=== PATIENT | male | born 1945 | race Caucasian/White ===

== ENCOUNTER 2016-08-03 21:34 | Inpatient (IN) | payer MEDICARE, OTHER ==
[~2016-08-03] VITALS: Ht 177.8 cm; Wt 95.5 kg
[~2016-08-03 21:34] MED LIST: ADV250INH IH; ASPI-628 PO; COMBIVENTA INH; HYDR25TA4 PO
--- NOTE | 2016-08-03 21:38 | ED.REPORT ---
HPI-Dyspnea / Wheezing Date of Service Aug 03, 2016 ED Provider: MD Heather This is a 70 year old male with a history of COPD, HTN, and osteoarthritis brought to the emergency department by EMS complaining of dyspnea that worsened just prior to arrival. Reports inability to catch his breath. Associated symptoms include fever, chills, and non productive cough that began 2 days ago. Denies nausea, vomiting, abdominal pain, chest pain, constipation, or diarrhea. Nursing Notes Stated Complaint: RESPIRATORY DISTRESS Nursing Notes Reviewed: Yes Allergies: Coded Allergies: No Known Allergies (Unverified , 04/04/14) Scheduled Albuterol/Ipratropium (Combivent Inhaler) 14.7 Gm Aero 14.7 GM INH QID Fluticasone/Salmeterol (Advair 250-50 Diskus) 60 Puff/Inh Disk 1 PUFF IH BID Potassium Chloride ER (Klor-Con 10) 10 Meq Tablet 10 MEQ PO BID Prednisone (PredniSONE) 5 Mg Tab 5 MG PO DAILY Scheduled PRN Furosemide (Furosemide) 80 Mg Tab 80 MG PO BID PRN PRN For Shortness of Breath General Time Seen by MD: 21:37 Chief Complaint Shortness of breath Hx Obtained From: Patient Arrived By: Ambulance Sudden in Onset?: Yes Onset Occurred: 2 days ago Symptom Duration: Since onset Severity: Current: No pain currently Pertinent Negative: Pt denies other symptoms Recent Healthcare: No recent doctor visit, No recent hospitalization Similar Sx Previous: No Past Medical History Past Medical History Osteoarthritis COPD HTN, well controlled Comminuted, displaced distal femur fracture Past Surgical History Cataracts Left TKA Left distal femur ORIF with 2 plates Reports: Appendectomy, Tonsillectomy Reports: Knee replacement Family History Denies any family hx of coagulopathy Smoking History Current Every Day Smoker Social History Alcohol Use: "Social" Drug Use: Denies drug use Other Social History: , Local resident Ambulatory Status Independent Review of Systems Constitutional: Reports: Chills, Fever Respiratory: Reports: Non-productive cough, Shortness of breath Complete sys rev & neg: except as marked. GI: Denies: Abdominal pain, Constipation, Diarrhea, Nausea, Vomiting Physical Exam Initial Vital Signs Vital Signs (First) Date Time Temp Pulse Resp B/P Pulse Ox O2 Delivery O2 Flow Rate FiO2 08/03/16 21:49 36.7 130 46 185/83 92 Nasal Cannula 2 08/03/16 22:59 35 - Initial VS: Reviewed Head / Eyes: Atraumatic, Normocephalic, PERRL Abdomen / GI: Soft, Non-tender, No guarding, No rebound, No distention Extremities: Vascular intact, Neuro intact, No swelling, No tenderness Neurologic: Alert, Oriented, Nonfocal Psychiatric: Mood/affect normal, Behavior normal, Normal thought content General/Constitutional: Awake, Alert Neck: Atraumatic, Supple, No meningismus, Full range of motion, No swelling, Non-tender, No masses Resp Distress / Stridor: Positive: Resp distress moderate Wheezing / Retractions: Positive: Wheeze insp/exp diffuse tachypneic Cardiovascular: Heart rate NL, Regular rhythm, Heart sounds NL, Peripheral circulation NL Skin: Warm, Dry Cyanotic discoloration to arms and legs. Interpretation & Diagnostics Lab Results Interpretation Result Diagram: 08/03/16214408/03/162144 Test 08/03/16 21:45 08/03/16 22:04 White Blood Count 13.9th/mm3 (3.8-10.1) Red Blood Count 5.44mil/mm3 (4.40-5.80) Hemoglobin 17.6g/dL (13.8-17.2) Hematocrit 54.9% (41.0-50.0) Mean Corpuscular Volume 100.9fL (81-100) Mean Corpuscular Hemoglobin 32.4pg (27.0-35.0) Mean Corpuscular Hemoglobin Concent 32.1% (32.0-37.0) Red Cell Distribution Width 13.5% (12.3-15.4) Platelet Count 137bil/L (150-400) Neutrophils (%) (Auto) 78.5% (40-74) Lymphocytes (%) (Auto) 8.3% (14-46) Monocytes (%) (Auto) 12.8% (4-12) Eosinophils (%) (Auto) 0.1% (0-5) Basophils (%) (Auto) 0.1% (0-3) D-Dimer < 0.5mg/L (<0.50) Sodium Level 133mEq/L (134-144) Potassium Level 4.7mEq/L (3.5-5.2) Chloride Level 84mEq/L (97-108) Carbon Dioxide Level 34mmol/L (18-29) Blood Urea Nitrogen 23mg/dL (8-27) Creatinine 0.88mg/dL (0.76-1.27) Estimat Glomerular Filtration Rate 91mL/min (>59) Glucose Level 122mg/dL (60-99) Calcium Level 9.9mg/dL (8.5-10.1) Total Bilirubin 0.6mg/dL (0.0-1.2) Aspartate Amino Transf (AST/SGOT) 33U/L (0-50) Alanine Aminotransferase (ALT/SGPT) 18U/L (0-44) Alkaline Phosphatase 116U/L (25-160) Troponin T 0.010ug/L (0.0-0.011) Pro-B-Type Natriuretic Peptide 1616pg/mL (0-376) Total Protein 8.6g/dL (6.4-8.4) Albumin 4.6g/dL (3.4-5.0) Hold Lucas Top Tube Received (Received) ECG Interpretation ECG Interpretation: Sinus tachycardia at a rate of 130 Inferior infarct, old Time: 22:03 Interpreted by: ED physician X-Ray Chest Interpretation Chest Xray Interpretation: No pulmonary edema Interpretation / Wet Read by: Wet read ED physician Infiltrate / Pneumothorax: Infiltrate R lower lung Re-Eval/Medical Decision Med Decision/Clinical Course 70-year-old male with a history of COPD presents in extremis. He presents tachypneic at 50, cyanotic and with market to severe respiratory distress and work of breathing. He had JVD. Very poor air entry. He was immediately placed on continuous DuoNeb followed by continuous albuterol. IV steroids were initiated. Blood gas showed CO2 retention and acidosis. Chest x-ray showed evidence of COPD. It took some persuasion but Mr. Nielsen accepted BiPAP. I felt the BiPAP was indicated or we are going to need to intubate him if he did not turn around quickly. As it were the BiPAP helped dramatically. After about 30 minutes he was moving much more air. The bronchodilators kicked in. His respiratory rate was 28. He was no longer cyanotic. He was no longer elisabet in appearance. I felt that he was stable for PCU admission. Re-Evaluation/Progress #1: Time of Eval: 22:00 Patient Status: No relief Re-Evaluation/Progress #2: Time of Eval: 22:56 Patient Status: Mild relief Re-Evaluation/Progress Note: Plan for admission Re-Evaluation/Progress #3: Time of Eval: 23:13 Patient Status: Condition improved Re-Evaluation/Progress Note: Pt on bipap, tolerating exceptionally well. Condition greatly improved, with faint expiratory wheezes. Stable for admission. Consultation : Referral / Consult Name: Buddy Haile MD Consulted With: Hospitalist Call Returned at: 22:57 Dowel Sticker Operator: Accepts admit Counseled Regarding: Diagnosis, Lab results, Need for follow-up, Need for admission Discharge & Departure Impression: Primary Impression: Respiratory failure Additional Impression: COPD exacerbation Disposition: ADMITTED TO HOSPITAL Discharge Condition All VS Reviewed: Yes Condition: Stable Referrals: Varinder Jones MD (PCP) Crit Care Except Billable Proc Time Spent: 30-74 minutes Services Performed: Patient management by me (management continuous albuterol and Atrovent, IV steroids and BiPAP.), Time spent at bedside, Reviewing test results, Reviewing imaging, Discussing patient care, Documentation in record Scribe Attestation Portions of this note were transcribed by Adán Nunez. I, Dr. Romero personally performed the history, physical exam and medical decision-making; I reviewed and confirmed the accuracy of the information in the transcribed note. Signed by Malissa Patino, 08/03/2016 at 23:30. Willis Romero DO Aug 03, 2016 21:38 ADÁN NUNEZ Aug 03, 2016 21:51
[2016-08-03] MEDS ORDERED: Albuterol 0.5% (5mg/mL) 20 mL Inhalation Solution ONE (21:42)
[2016-08-03] MEDS ORDERED: Albuterol-Ipratropium 3 mL Inhalation Solution NEB ONE (21:45)
[2016-08-03] MEDS ORDERED: Albuterol 2.5 mg/3 mL Inhalation Solution NEB ONE (21:45)
[2016-08-03 21:49] VITALS: BP 185/83; PULSE 130; RESP 46; O2SAT 92
[2016-08-03] MEDS ORDERED: MethylprednisoLONE Sodium Succinate 62.5 mg/mL 2 mL Inj IVPUSH ONE (21:50)
[2016-08-03 21:53] LABS: BASOPHILS % (AUTO) 0.1 % (0-3); EOSINOPHILS % (AUTO) 0.1 % (0-5); MONOCYTES % (AUTO) 12.8 % (4-12); Mean Corpuscular Hemoglobin 32.4 pg (27.0-35.0); Mean Corpuscular Volume 100.9 fL (81-100); NEUTROPHILS % (AUTO) 78.5 % (40-74); Platelet Count 137 bil/L (150-400)
[2016-08-03 22:17] LABS: TROPONIN T 0.01 ug/L (0.0-0.011)
--- NOTE | 2016-08-03 22:20 | ABG ---
DateTimeAnalyzed 22:15:00 -_ pH ____7.320 - 7.350 7.450 pCO2 ___73.9__ -mmHg 35.0 45.0 pO2 ___86.6__ -mmHg 69.0 116 HCO3- ___37.0__ -mmol/L 22.0 26.0 ABE ____7.6__ -mmol/L -2.0 2.0 tHb ___16.2__ -g/dL O2Hb ___89.0__ -% COHb ____6.1__ -% MetHb ____1.0__ -% sO2 ___95.8__ -% 25.0 FIO2 ___60.0__ -% Drawn By LT - Date/Time Notified____ 22:20:00 -_ Notified By LT - Notified Whom __DR BEIA - B 746 -mmHg tO2 ___20.3__ -Vol% OrderingPhysicianInitials tb - Roderick test _Positive -
[2016-08-03] MEDS ORDERED: Peds - CefTRIAXone 40 mg/mL 2,000 MG in Syringe 1 EACH IV ONE (22:25)
[2016-08-03 22:29] VITALS: BP 134/74; PULSE 129; RESP 34; O2SAT 95
[2016-08-03 22:38] VITALS: PULSE 131; RESP 37; O2SAT 93
[2016-08-03] MEDS ORDERED: cefTRIAXone Inj 2,000 MG in Dextrose 5% Minibag Plus 50 ML IV ONE (22:38)
[2016-08-03 22:59] VITALS: RESP 34; O2SAT 92
[2016-08-03] MEDS ORDERED: POTA10TA7 PO (23:03)
[2016-08-03] MEDS ORDERED: FRSM80T PO (23:03)
[2016-08-03] MEDS ORDERED: PRD5T PO (23:03)
[2016-08-03] MEDS ORDERED: Alum-Mag Hydrox-Simeth 30 mL Suspension PO PRN (23:45)
[2016-08-03] MEDS ORDERED: Polyethylene Glycol (PEG) 17 Gm Powder PO PRN (23:45)
[2016-08-03] MEDS ORDERED: Albuterol 1.25 mg/3 mL Inhalation Solution NEB PRN (23:45)
[2016-08-03] MEDS ORDERED: Ondansetron 2 mg/mL 2 mL Inj IVPUSH PRN (23:45)
[2016-08-04] VITALS (19 sets, daily range): BP systolic 127–152; BP diastolic 65–80; PULSE 81–131; RESP 17–40; O2SAT 90–96
--- NOTE | 2016-08-04 00:47 | PCM.HPMED ---
Subjective Date of Service Aug 04, 2016 Primary Provider: Admitting Physician: Buddy Haile MD Primary Care Physician: Varinder Jones MD Attending Physician: Buddy Haile MD Chief Complaint: Shortness of breath History of Present Illness: Patient is a 70-year-old male with COPD, hypertension and CAD presenting with dyspnea. The patient is accompanied by his , Sandra, at bedside. Patient reports breathing problems over the past two months and was recently diagnosed with bronchitis two days ago and started on antibiotics.Patient reports onset of shortness of breath earlier in the evening that occurred without any precipitating event while at rest. Patient states he was unable to catch his breath. This prompted him to summon EMS and be brought to [facility] for further evaluation. At time of visit, the patient is seen on BiPAP. He reports his breathing has improved significantly. Patient has associated fever, chills, cough with creamy off-white sputum, nausea, lightheadedness, chest discomfort and diarrhea, but otherwise denies emesis, abdominal pain, constipation, dysuria. Patient reports that he uses supplemental oxygen 2L/min at baseline. Patient states he has had similar breathing issues in the past; however, this is the first time he has required visit to the ED. Vitals in the ED: temp 36.7, HR 130s, RR 34 on BiPAP, BP 134/74. ABG 7.320 / 73.9 / 86.6 / 37.0. Notable labs: WBC 13.9, Hgb 17.6, Hct 54.9, platelets 137. D -dimer <0.5. Pro-BNP 1616. Patient received Solu-Medrol 250mg, DuoNeb and albuterol. Review of Systems: A comprehensive review of systems was conducted with the patient and found to be negative except as above in the History of Present Illness. Allergies Coded Allergies: No Known Allergies (Unverified , 04/04/14) Home Medications Combivent one puff QID Lasix 80mg BID KCl 20mEq BID Prednisone 5mg daily Advair one puff BID PMH Osteoarthritis COPD Hypertension CAD Surgical History Cataract surgery Left knee replacement Left femur ORIF Appendectomy Tonsillectomy . Family History Mother at 76 years old from CHF Father at 78 years old from CHF Social History Occupation: Retired, formerly in [employer] Alcohol Use: Yes Alcoholic Drinks Per Day: At least 1 glass of wine Hx Substance Use: No Smoking Status: Current Every Day Smoker (Smoked 1PPD x 52 years) Living Arrangement: with Family Exam Vital Signs Vital Sign - Last Date Time Temp Pulse Resp B/P Pulse Ox O2 Delivery O2 Flow Rate FiO2 08/03/16 22:59 34 92 35 08/03/16 22:38 131 Room Air 8 08/03/16 22:29 134/74 08/03/16 21:49 36.7 Exam General: No acute distress, well-developed, well-nourished, appropriately interactive HEENT: Normocephalic, atraumatic. External ears without defect. Pupils equal, round, and reactive to light. Anicteric sclerae, moist conjunctivae, and no lid lag. BiPAP mask in place. Neck: Supple. No lymphadenopathy or thyromegaly. Cardiovascular: Regular rate and rhythm with no murmurs, rubs, or gallops appreciated Pulmonary: Diffuse coarse sounds bilaterally with wheezes. Abdomen: Bowel tones present. Soft, nontender, nondistended. Extremities: Lower extremities with chronic changes and cyanosis. Mild pitting edema to the ankles bilaterally. Skin: Normal temperature, turgor, and texture; no rash, ulcers, or subcutaneous nodules appreciated. Neurological: Cranial nerves grossly intact. Psychiatric: Normal mood and affect. Alert and oriented to person, place, and time. Lab and Diagnostics Result Diagram: 08/03/16214408/03/162144 Assessment & Plan Patient is a 70-year-old male with COPD, hypertension and CAD presenting with dyspnea and admitted for suspected COPD exacerbation. 1. Acute COPD exacerbation. Present on admission. Active -Likely exacerbated by recent URI -Patient received Solu-Medrol 250mg, albuterol and DuoNeb in ED -Continue BiPAP and supplemental oxygen -Prednisone 40mg daily -Nebs - albuterol and DuoNeb -Ceftriaxone 2. Acute Respiratory failure with Hypercarbia, likely chronic. Present on admission. Active -ABG shows pCO2 73.9 -BiPAP as noted in #1 -Repeat ABG 3. Acute leukocytosis. Present on admission. Active -WBC 13.9 -Likely reactive in addition to chronic prednisone use -Follow with CBC 4. Secondary polycythemia, chronic. Present on admission. Active -Hgb 17.6 -Likely secondary polycythemia due to chronic hypoxia -Follow with CBC 5. Hypertension, chronic. Present on admission -Continue with home Lasix 6. Nicotine dependence. Present on admission -Discussed smoking cessation. Patient states he will quit -Nicotine patch PRN Patient Status: Patient is admitted under inpatient status with expected length of stay greater than 2 midnights due to severity of presenting symptoms, risk of adverse event, and complexity of treatment plan. VTE Prophylaxis: Sub-Q Heparin (Unfractionated) Resuscitation Status: DNR/DNI:Do Not Resuscitate/Intubate Attending Statement The patient was seen and examined together with Dr. Rivera on 08/03 and I agree with the history, exam and plan as outlined in the note above. Marquez Rivera DO Aug 04, 2016 00:01 Buddy Haile MD Aug 04, 2016 01:02
[2016-08-04] MEDS: Heparin 5,000 Unit/mL Inj SUBQ SCH ×3 (00:57→15:57)
[2016-08-04 01:07] LABS: APPEARANCE,URINE CLEAR (CLEAR,HAZY); COLOR,URINE DARK YELLOW (YELLOW)
[2016-08-04 01:08] LABS: OCCULT BLOOD,URINE NEGATIVE (NEGATIVE); UROBILINOGEN,URINE NORMAL (NORMAL)
--- NOTE | 2016-08-04 01:56 | NUR ---
Admit and respiratory status Patient came to the PCC on a gurney brought up by an pathology laboratory technologist. Patient helped into bed. Patient is in moderate respiratory distress. Patient is breath at 30-40 times a minute. 12 LPM via oxymask is maintaining saturations above 90%. Patient place on continues pulse ox. Patients lungs are course, wet and crackles are noted in all lobes. Patient was placed on bipap by RT. Within five minutes the patient had ripped off his bipap mask and had to be place back on oxymask. Patient transitioned to high flow. Patient tolerate high flow well. Admission completed and patient settled into bed for the night. Patient reports no needs at this time and reported that he just wanted to sleep.
--- NOTE | 2016-08-04 05:51 | NUR ---
After being placed on high flow the patient RR ranged between 20-25 and the patient was in significant less distress. Patient was able to sleep for several hours and reported he is feeling much better.
--- NOTE | 2016-08-04 06:23 | ABG ---
DateTimeAnalyzed 06:17:00 -_ pH ____7.296 - 7.350 7.450 pCO2 ___80.0__ -mmHg 35.0 45.0 pO2 ___90.0__ -mmHg 69.0 116 HCO3- ___37.8__ -mmol/L 22.0 26.0 ABE ____7.7__ -mmol/L -2.0 2.0 tHb ___16.0__ -g/dL O2Hb ___91.8__ -% COHb ____3.8__ -% MetHb ____0.9__ -% sO2 ___96.3__ -% 25.0 FIO2 ___40.0__ -% Drawn By MD - Date/Time Notified____ 06:22:00 -_ Spontaneous_RR ___28.0__ -b/min Liter_Flow ___60.0__ -L/min Oxygen Device 1 HI FLOW CANNULA - Notified By MD - Notified Whom RN T.NIKOLAY - B 739 -mmHg tO2 ___20.7__ -Vol% Roderick test _Positive -
--- NOTE | 2016-08-04 08:30 | DRSVH ---
PROCEDURE: X-RAY CHEST ONE VIEW, PORTABLE ([id number]) INDICATIONS: respiratory distress TECHNIQUE: One view of the chest was acquired. COMPARISON: 03/30/2015 FINDINGS: Surgical changes and devices: None. Lungs and pleura: No pleural effusions or pneumothorax. Diffuse interstitial prominence is present, lower lobes predominant. No focal consolidation. No septal lines. Mediastinum: Mediastinal contours appear normal. Heart size is normal. Bones and chest wall: No suspicious bony lesions. Overlying soft tissues appear unremarkable. IMPRESSION: Diffuse reticulonodular infiltrate, possibly viral or atypical pneumonitis. Dictated by: Gary Gonzalez M.D. on 08/04/2016 at 8:28 Approved by: Gary Gonzalez M.D. on 08/04/2016 at 8:29
[2016-08-04] MEDS: predniSONE 20 mg Tablet PO SCH (08:50)
[2016-08-04] MEDS: Albuterol-Ipratropium 3 mL Inhalation Solution NEB PRN ×3 (09:56→21:11)
--- NOTE | 2016-08-04 12:50 | DRSVH ---
[facility] [address] [place] [address] Echocardiogram Report Name: GOPAL IQBAL te: 08/04/2016 Height: 70 in Hospital Exam Location: [facility] Weight: 207 lb Gender: Male BSA: 2.1 m2 : 1945 Age: 70 yrs BP: 134/76 mm Hg Reason For Study: DYSPNEA, LEG EDEMA History: CAD,COPD,HTN,SMOKER-CURRENT Ordering Physician: HOSPITALIST [facility] Performed By: Savi Royal Referring Physician: Dr. Thom Jones Interpretation Summary The study quality was technically difficult. The left ventricle is grossly normal size. The ejection fraction is estimated to be 60-65%. Paradoxical and flattened septal motion is consistent with right ventricular pressure and volume overload. The right ventricle is moderate to severely dilated. Right ventricular systolic function is moderate to severely reduced. There is moderate tricuspid regurgitation (Eccentric jet, seen in apical views). Pulmonary artery pressures cannot be estimated because of the lack of a measurable TR jet velocity, however suspect significant pulmonary hypertension. The IVC is dilated (diameter is greater than 2.1 cm) and it collapses less than 50% with a sniff. This suggests a high right atrial pressure of 15 mm Hg. Procedure: A two-dimensional transthoracic echocardiogram with color flow and Doppler was performed. The study quality was technically difficult. Patient very SOB. A contrast injection of Definity was performed to improve assessment of LV function. Contrast was injected into an intravenous site in the right arm. A total of 5 cc of contrast was given. There is no prior echocardiogram noted for this patient. The patient was in sinus during the exam. The patient did well with the Definity Contrast. The patient had frequent PACs during the exam. Left Ventricle: The left ventricle is grossly normal size. Left ventricular wall thickness is mildly increased. There is no thrombus. The left ventricular ejection fraction is grossly normal. The ejection fraction is estimated to be 60-65%. Paradoxical and flattened septal motion is consistent with right ventricular pressure and volume overload. Spectral Doppler of the mitral valve shows a normal E/A wave ratio. Right Ventricle: The right ventricle is moderate to severely dilated. Right ventricular systolic function is moderate to severely reduced. Atria: The left atrium is moderately dilated. The right atrium is mildly dilated. There is no Doppler evidence for an atrial septal defect. Mitral Valve: The mitral valve is grossly normal. There is trace mitral regurgitation. Aortic Valve: The aortic valve is not well visualized. There is no hemodynamically significant valvular aortic stenosis. No aortic regurgitation is present. Tricuspid Valve: The tricuspid valve is not well visualized, but is grossly normal. There is moderate tricuspid regurgitation. Pulmonary artery pressures cannot be estimated because of the lack of a measurable TR jet velocity. Pulmonic Valve: The pulmonic valve is not well visualized. Great Vessels: The aortic root is normal size. The pulmonary is not well visualized. The IVC is dilated (diameter is greater than 2.1 cm) and it collapses less than 50% with a sniff. This suggests a high right atrial pressure of 15 mm Hg. Pericardium/ Pleura There is no pericardial effusion. There is no pleural effusion. MMode/2D Measurements & Calculations LVIDd: 4.6 cm LA dimension: 4.5 cm RA long axis LVOT diam LVIDs: 3.1 cm FS: 32.1 % LA A2 area: 22.7 cm RA area AoV Opening IVSd: 1.1 cm LA A4 area: 27.9 cm LVPWd: 1.3 cm LA length (vol): 6.0 cm : 23.9 cm Ao root diam LA vol: 89.7 ml RA vol: 88.3 ml: 3.2 cm LA vol index RA : 41.7 mm2 : 42.4 ml/m2 LV de la cruz. diameter/BSA LV sys. diameter/BSA RVD2 (mid) (cm/m^2): 2.2 (cm/m^2): 1.5 : 4.1 cm Doppler Measurements & Calculations Ao V2 max MV E max sly MV E/A: 1.2 MV P1/2t max sly : 178.4 cm/sec : 95.3 cm/sec Med Peak E' Sly Ao max PG MV A max sly : 12.7 mmHg : 80.6 cm/sec E/E' med: 15.4 MVA(P1/2t): 3.5 cm2 Ao mean PG MV P1/2t Lat Peak E' Sly : 62.8 msec LVOT Max Sly E/E' lat: 7.6 : 128.6 cm/sec E/e' average: 11.5 Pulm A Revs Dur [place](I,D): 2.9 cm sev ratio MV A dur: 0.10 sec Ao V2 mean LV V1 max PG [place] indexed to BSA Pulm A Revs Dur - MV : 115.9 cm/sec (cm^2/m^2): 1.4 A Dur: 0.02 msec Ao V2 VTI LV V1 VTI : 23.1 cm [place](V,D): 2.8 cm2 Reading Physician:VI
[2016-08-04] MEDS ORDERED: Furosemide 10 mg/mL 10 mL Inj IVPUSH ONE (15:55)
--- NOTE | 2016-08-04 17:28 | PCM.PNMED ---
Subjective Date of Service Aug 04, 2016 Subjective Mr. Singh Nielsen is a 70-year-old gentleman with COPD, hypertension and CAD, history of CHF presenting with dyspnea. The patient is accompanied by his , Sandra, at bedside. Patient reports breathing problems over the past two months and was recently diagnosed with bronchitis two days ago and started on antibiotics.Patient reports onset of shortness of breath earlier in the evening that occurred without any precipitating event while at rest. Patient states he was unable to catch his breath. This prompted him to summon EMS and be brought to [facility] for further evaluation. At time of visit, the patient is seen on BiPAP. He reports his breathing has improved significantly. Patient has associated fever, chills, cough with creamy off-white sputum disease and present for the last 2 months however has increased in volume the last 3 days, nausea without vomiting, lightheadedness after lying down for a period of time and standing up , chest discomfort and diarrhea, but otherwise denies emesis, abdominal pain, constipation, dysuria, and lower extremity edema for the past 2 months. Mr. Nielsen reports that his was sick one week ago with many of the same symptoms. Patient reports that he uses supplemental oxygen 2L/min at baseline. He also states that he has been prescribed a CPAP machine in the past however he does not like it and he will not sleep with it. Patient states he has had similar breathing issues in the past; however, this is the first time he has required visit to the ED. Exam Vital Signs Vital Sign - Last Date Time Temp Pulse Resp B/P Pulse Ox O2 Delivery O2 Flow Rate FiO2 08/04/16 06:15 111 24 93 HIFLOW CANNULA 40 08/04/16 06:13 60 08/04/16 03:10 37.2 139/80 Intake and Output 08/03/16 08/03/16 08/04/16 Cumulative From/Thru 15:00 23:00 07:00 08/03/16 21:49 - 08/04/16 04:32 Intake Total 200 ml 200 ml Output Total 150 ml 150 ml Balance 50 ml 50 ml Intake Oral 200 ml 200 ml Output Urine Total 150 ml 150 ml # Bowel Movements 0 0 Exam General: Elderly gentleman lying in bed sleeping, in no acute distress with high flow nasal prongs at 70 FiO2, well-developed and barrel chested, well- nourished, appropriately interactive HEENT: Normocephalic, atraumatic. External ears without defect. Pupils equal, round, and reactive to light. Anicteric sclerae, moist conjunctivae, and no lid lag. BiPAP mask in place. Neck: Supple. No lymphadenopathy or thyromegaly. Cardiovascular: Regular rate and rhythm with no murmurs, rubs, or gallops appreciated Pulmonary: Diffuse coarse sounds bilaterally with wheezes. Abdomen: Bowel tones present. Soft, nontender, nondistended. Extremities: Lower extremities with chronic changes and cyanosis. Mild pitting edema to the ankles bilaterally. Skin: Normal temperature, turgor, and texture; no rash, ulcers, or subcutaneous nodules appreciated. Neurological: Cranial nerves grossly intact. Psychiatric: Normal mood and affect. Alert and oriented to person, place, and time. IVs and Medications Medications Reviewed: Medications were reviewed in detail Lab and Diagnostics Result Diagram: 08/03/16214408/03/162144 X-Rays, CTs and MRIs X-RAY CHEST ONE VIEW, PORTABLE IMPRESSION: Diffuse reticulonodular infiltrate, possibly viral or atypical pneumonitis. Dictated by: Gary Gonzalez M.D. on 08/04/2016 at 8:28 Cardiac Echo Impressions Echocardiogram Report Interpretation Summary The study quality was technically difficult. The left ventricle is grossly normal size. The ejection fraction is estimated to be 60-65%. Paradoxical and flattened septal motion is consistent with right ventricular pressure and volume overload. The right ventricle is moderate to severely dilated. Right ventricular systolic function is moderate to severely reduced. There is moderate tricuspid regurgitation (Eccentric jet, seen in apical views). Pulmonary artery pressures cannot be estimated because of the lack of a measurable TR jet velocity, however suspect significant pulmonary hypertension. The IVC is dilated (diameter is greater than 2.1 cm) and it collapses less than 50% with a sniff. This suggests a high right atrial pressure of 15 mm Hg. Additional Diagnostics [facility] DateTimeAnalyzed 06:17:00 -_ pH ____7.296 - 7.350 7.450 pCO2 ___80.0__ -mmHg 35.0 45.0 pO2 ___90.0__ -mmHg 69.0 116 HCO3- ___37.8__ -mmol/L 22.0 26.0 Assessment & Plan Patient is a 70-year-old male with COPD, hypertension and CAD presenting with dyspnea and admitted for suspected COPD exacerbation. 1. Severe sepsis, present on admission. Improving. - Sepsis criteria met upon admission with respiratory rate of 46, heart rate of 130, WBC elevated 13.9, respiratory failure per problem #2. - Chest X-Ray as above. Diffuse reticulonodular infiltrate. - ABG as above. - This afternoon vital signs have normalized. - Rapid flu negative. - Pro calcitonin 0.2. - Urine analysis and culture pending. - Viral PCR pending. - MRSA pending. - Blood cultures 2 pending - Sputum culture pending. - Strep pneumo and legionella antigens pending. - Patient given ceftriaxone. 2. Acute Respiratory failure with Hypercarbia, likely chronic. Present on admission. Active - ABG shows pCO2 73.9 - Currently on high flow at 70 FiO2 - Repeat ABG - Chest x-ray as above. 3. Acute on chronic exacerbation of heart failure with preserved ejection fraction, present on admission. Active. - Echocardiogram as above. - 80 mg IV Lasix given in addition to home regimen. 4. Acute COPD exacerbation. Present on admission. Active - Likely exacerbated by recent URI - Patient received Solu-Medrol 250mg, albuterol and DuoNeb in ED - Continue BiPAP or high flow and supplemental oxygen - Prednisone 40mg daily - Nebs - albuterol and DuoNeb and Pulmicort 5. Acute leukocytosis. Present on admission. Active -WBC 13.9 -Likely reactive in addition to chronic prednisone use -Follow with CBC 6. Secondary polycythemia, chronic. Present on admission. Active -Hgb 17.6 -Likely secondary polycythemia due to chronic hypoxia -Follow with CBC 7. Hypertension, chronic. Present on admission -Continue with home Lasix 80 mg by mouth twice a day 8. Nicotine dependence. Present on admission -Discussed smoking cessation. Patient states he will quit -Nicotine patch PRN 9. Obstructive sleep apnea, present on admission. Active. - Recommend home CPAP use, patient states that he will not use it. - Stop bang score 7 Acetaminophen for mild pain when necessary. Bowel regimen Senna and MiraLAX scheduled and PRN. Zofran when necessary for nausea and vomiting. SubQ heparin. SCDs in place. High-risk medications: Patient Status: Patient is admitted under inpatient status with expected length of stay greater than 2 midnights due to severity of presenting symptoms, risk of adverse event, and complexity of treatment plan. Pain Evaluation: Adequate Pain Control VTE Prophylaxis: Sub-Q Heparin (Unfractionated) VTE Mechanical Devices: Intermittant Pneumatic CD Resuscitation Status: DNR/DNI:Do Not Resuscitate/Intubate Attending Statement The patient was seen and examined together with Dr. Garvin on 08/04/2016 and I agree with the history, exam and plan as outlined in the note above. . ISHMAEL GARVIN DO Aug 04, 2016 07:53 Yoel Allen MD Aug 06, 2016 08:01
--- NOTE | 2016-08-04 19:22 | NUR ---
Respiration Pt. has been on high flow throughout shift, compliant with care and understand why he needs the high flow on. Pt. lungs on auscultation sound coarse, with crackles throughout. Pt. SpO2 has been the mid 90's.
[2016-08-04] MEDS: Budesonide 0.5 mg/2 mL Inhalation Solution NEB SCH (21:11)
[2016-08-04] MEDS ORDERED: cefTRIAXone Inj 2,000 MG in Dextrose 5% Minibag Plus 50 ML IV SCH (23:00)
[2016-08-05] VITALS (9 sets, daily range): BP systolic 151–163; BP diastolic 83–89; PULSE 68–97; RESP 18–25; O2SAT 75–98
[2016-08-05] MEDS: Heparin 5,000 Unit/mL Inj SUBQ SCH ×3 (00:34→15:56)
[2016-08-05 03:19] LABS: BASOPHILS % (AUTO) 0.1 % (0-3); EOSINOPHILS % (AUTO) 0 % (0-5); MONOCYTES % (AUTO) 9.3 % (4-12); Mean Corpuscular Hemoglobin 32.8 pg (27.0-35.0); Mean Corpuscular Volume 101.7 fL (81-100); NEUTROPHILS % (AUTO) 86.4 % (40-74); Platelet Count 150 bil/L (150-400)
[2016-08-05 04:10] LABS: Magnesium 2.2 mg/dL (1.6-2.6); Phosphorus 2.9 mg/dL (2.5-4.9)
--- NOTE | 2016-08-05 05:59 | NUR ---
SOB c/o SOB and air hunger periodically throughout shift. Noted to remove high flow O2 during such complaints. Instructed to maintain compliance with high flow oxygen to avoid respiratory symptoms. Will continue to encourage compliance. Addendum: 08/05/16 at 0611 by JIMMY GAO RN Student assessment and charting done with this RN and agree with their findings.
[2016-08-05] MEDS: predniSONE 20 mg Tablet PO SCH (07:37)
[2016-08-05] MEDS: Albuterol-Ipratropium 3 mL Inhalation Solution NEB PRN (07:43)
[2016-08-05] MEDS: Budesonide 0.5 mg/2 mL Inhalation Solution NEB SCH (07:43)
--- NOTE | 2016-08-05 09:59 | DRSVH ---
PROCEDURE: X-RAY CHEST ONE VIEW, PORTABLE ([id number]) INDICATIONS: dyspnea TECHNIQUE: One view of the chest was acquired. COMPARISON: [facility], CR, XR CHEST 1VW (PORTABLE), 08/03/2016, 21:51. FINDINGS: Surgical changes and devices: None. Lungs and pleura: Nearly resolved widespread bilateral interstitial opacities. Mediastinum: Mediastinal contours appear normal. Heart size is normal. Bones and chest wall: No suspicious bony lesions. Overlying soft tissues appear unremarkable. IMPRESSION: Nearly resolved edema. Dictated by: Wayne Richardson RR Interpreted: Korey Álvarez MD on 08/05/2016 at 9:58 Transcribed by: SHIV on 08/05/2016 at 9:58 Approved by: Korey Álvarez M.D. on 08/05/2016 at 13:45
--- NOTE | 2016-08-05 13:21 | NUR ---
BiPAP Patient on edge of bed tripoding, breathing ois labored. SpO2 ranges from low 80s to low 90s. Non compliant with wearing High flow,frequently removes it. Blood gases revealed resp acidosis. MD requested patient be put on BiPAP, patient agreed to wear but frequently loosens straps so BiPap not effective. Patient currently eating and refused to wear any Supplemental O2, after discussing importance of maintaining adequate oxygen levels patient agreed to wear NC. Currently wearing NC at 6L, SpO2 in the high 80s. MD aware.
--- NOTE | 2016-08-05 15:48 | NUR ---
O2 Placed patient back on BiPAP after his lunch. After about a half an hour patient began yelling "Get in here, someone come in here now". Upon entering the room he yelled "take this off of me now". I went to try and adjust the mask but he pulled it off and threw it across the room. He refused to wear any supplemental oxygen. I reaproached patient after a few minutes and he agreed to wear NC. Patient SpO2 in the mid 90s on 6L NC, turned him down to 2L where is maintaining at 88-92% SpO2. Patient is in tripod position at the edge of bed and breathing is labored with accessory muscle use. aware.
--- NOTE | 2016-08-05 16:51 | PCM.DIMED ---
ISHMAEL GARVIN DO 08/05/16 1630: Discharge Instructions Date of Service Aug 05, 2016 Dates of Hospitalization Aug 03, 2016 at 23:28 Discharge Diagnosis Discharge Diagnosis 1. Acute on chronic Respiratory failure with Hypercarbia, likely chronic. Present on admission. Active. 2. Acute on chronic exacerbation of heart failure with preserved ejection fraction, present on admission. Active. 3. Acute COPD exacerbation. Present on admission. Active. 4. Severe sepsis, present on admission. Resolved. 5. Acute leukocytosis. Present on admission. Resolved. 6. Secondary polycythemia, chronic. Present on admission. Resolved. 7. Hypertension, chronic. Present on admission. Active. 8. Nicotine dependence. Present on admission. Active. 9. Obstructive sleep apnea, present on admission. Active. Medication Instructions Prednisone 60 mg by mouth once a day for 5 days. Once finished with the 60 mg once a day for 5 days then you can resume your previous to 5 mg per day of prednisone. Start Torsemide 40 mg by mouth daily. Start taking MiraLAX once a day until you have bowel movements. Discontinue Lasix. Lasix is the same type of drug as torsemide however torsemide has a much better oral absorption and may be more effective as a diuretic for you. Not take Lasix and torsemide at the same time. In fact I will reevaluate stop taking Lasix, and replace it with torsemide. Patient Instructions Follow-up plan Follow-up with her primary care physician within one week. At that time he will need to address her diuretics torsemide versus furosemide, and the utility of adding extra antihypertensive medication for high blood pressure. I recommend that you stop smoking immediately, since this can exacerbate her existing COPD and can potentially bring you back to the hospital. I highly recommend using a CPAP machine at night for obstructive sleep apnea. I highly recommend you follow up with a chore tender to help manage your severe COPD and sleep apnea. Follow-up Provider: Varinder Jones MD Follow-up with PCP in: 2 weeks Provider: Isis Spears MD Follow-up in: 2 weeks Yoel Allen MD 08/06/16 0802: Discharge Instructions Attending's Statement The patient was seen and examined together with Dr. Garvin on 08/05/2016 and I agree with the history, exam and plan as outlined in the note above. . ISHMAEL GARVIN DO Aug 05, 2016 16:30 Yoel Allen MD Aug 06, 2016 08:02
[2016-08-05] MEDS ORDERED: PRED-508 PO (17:12)
[2016-08-05] MEDS ORDERED: POLY17PO6 PO (17:12)
[2016-08-05] MEDS ORDERED: TORS20TA3 PO (17:12)
--- NOTE | 2016-08-05 18:18 | NUR ---
Discharge Patient removed supplemental O2 and refused to wear any home, despite numerous attempts by this RN and patients to place NC. Patient audibly wheezing, appeared SOB while sitting in WC. Discharge instructions and paper Rx printed and reviewed verbally with patient and patients . Patient left unit via WC with all personal belongings accompanied by and discharged home.
--- NOTE | 2016-08-06 15:28 | PCM.DC.MED ---
Discharge Summary Date of Service Aug 06, 2016 Dates of Hospitalization Date of Hospital Admission Aug 03, 2016 at 23:28 Date of Discharge: Aug 05, 2016 Providers: Admitting Physician: Buddy Haile MD Primary Care Physician: Varinder Jones MD Attending Physician: Buddy Haile MD Diagnosis at Time of Discharge Diagnosis at Time of Discharge 1. Acute on chronic Respiratory failure with Hypercarbia, likely chronic. Present on admission. Active. 2. Acute on chronic exacerbation of heart failure with preserved ejection fraction, present on admission. Active. 3. Acute COPD exacerbation. Present on admission. Active. 4. Severe sepsis, present on admission. Resolved. 5. Acute leukocytosis. Present on admission. Resolved. 6. Secondary polycythemia, chronic. Present on admission. Resolved. 7. Hypertension, chronic. Present on admission. Active. 8. Nicotine dependence. Present on admission. Active. 9. Obstructive sleep apnea, present on admission. Active. Procedures XRay, CTs & MRIs X-RAY CHEST ONE VIEW, PORTABLE IMPRESSION: Diffuse reticulonodular infiltrate, possibly viral or atypical pneumonitis. Dictated by: Gary Gonzalez M.D. on 08/04/2016 at 8:28 Cardiac Echo Impression Echocardiogram Report Interpretation Summary The study quality was technically difficult. The left ventricle is grossly normal size. The ejection fraction is estimated to be 60-65%. Paradoxical and flattened septal motion is consistent with right ventricular pressure and volume overload. The right ventricle is moderate to severely dilated. Right ventricular systolic function is moderate to severely reduced. There is moderate tricuspid regurgitation (Eccentric jet, seen in apical views). Pulmonary artery pressures cannot be estimated because of the lack of a measurable TR jet velocity, however suspect significant pulmonary hypertension. The IVC is dilated (diameter is greater than 2.1 cm) and it collapses less than 50% with a sniff. This suggests a high right atrial pressure of 15 mm Hg. Other Diagnostics [facility] DateTimeAnalyzed 06:17:00 -_ pH ____7.296 - 7.350 7.450 pCO2 ___80.0__ -mmHg 35.0 45.0 pO2 ___90.0__ -mmHg 69.0 116 HCO3- ___37.8__ -mmol/L 22.0 26.0 Brief History Patient is a 70-year-old male with COPD, hypertension and CAD presenting with dyspnea. The patient is accompanied by his , Sandra, at bedside. Patient reports breathing problems over the past two months and was recently diagnosed with bronchitis two days ago and started on antibiotics.Patient reports onset of shortness of breath earlier in the evening that occurred without any precipitating event while at rest. Patient states he was unable to catch his breath. This prompted him to summon EMS and be brought to [facility] for further evaluation. At time of visit, the patient is seen on BiPAP. He reports his breathing has improved significantly. Patient has associated fever, chills, cough with creamy off-white sputum, nausea, lightheadedness, chest discomfort and diarrhea, but otherwise denies emesis, abdominal pain, constipation, dysuria. Patient reports that he uses supplemental oxygen 2L/min at baseline. Patient states he has had similar breathing issues in the past; however, this is the first time he has required visit to the ED. Vitals in the ED: temp 36.7, HR 130s, RR 34 on BiPAP, BP 134/74. ABG 7.320 / 73.9 / 86.6 / 37.0. Notable labs: WBC 13.9, Hgb 17.6, Hct 54.9, platelets 137. D -dimer <0.5. Pro-BNP 1616. Patient received Solu-Medrol 250mg, DuoNeb and albuterol. Hospital Course Patient is a 70-year-old male with COPD, hypertension and CAD presenting with dyspnea and admitted for suspected COPD exacerbation. During his stay a battery of tests was performed to elucidate the exact cause of shortness of breath. Various viral studies, bacterial cultures from several sites including blood and sputum were performed as well as urine antigen for strep pneumo and Legionella. The only positive result came from the viral PCR which showed the patient had coronavirus. It is most likely coronavirus, history of COPD and current smoking status and in combination with his diastolic heart failure all contributed to patients respiratory failure. On 08/05/2016 patient began to feel anxious and generally angry towards his medical treatment. An ABG showed that he was beginning to trap and retain CO2 at higher levels than we are comfortable. Patient was currently on 70% high flow oxygen which he did not like and was not adequate for his COPD. He was placed on BiPAP which he claims he could not do. He stated that he cannot tolerate it and that he will not keep the mask on. He was counseled that point for smoking cessation and the importance of wearing his CPAP at home. Patient was largely argumentative and unwilling to comply with medical advice towards the end of his stay. He was aware that if he were discharged home. He is at high risk for experiencing another event of COPD exacerbation, respiratory arrest were even cardiac failure. Patient understood risks for going home and current condition. At that time he was discharged. 1. Severe sepsis, present on admission. Improving. - Sepsis criteria met upon admission with respiratory rate of 46, heart rate of 130, WBC elevated 13.9, respiratory failure per problem #2. - Chest X-Ray as above. Diffuse reticulonodular infiltrate. - ABG as above. - This afternoon vital signs have normalized. - Rapid flu negative. - Pro calcitonin 0.2. - Urine analysis and culture pending. - Viral PCR coronavirus. - MRSA negative. - Blood cultures 2 negative. - Sputum culture negative. - Strep pneumo and legionella antigens pending. - Patient given ceftriaxone. 2. Acute Respiratory failure with Hypercarbia, likely chronic. Present on admission. Active - ABG shows pCO2 73.9 - Currently on high flow at 70 FiO2 - Repeat ABG - Chest x-ray as above. 3. Acute on chronic exacerbation of heart failure with preserved ejection fraction, present on admission. Active. - Echocardiogram as above. - 80 mg IV Lasix given in addition to home regimen. 4. Acute COPD exacerbation. Present on admission. Active - Likely exacerbated by recent URI - Patient received Solu-Medrol 250mg, albuterol and DuoNeb in ED - Continue BiPAP or high flow and supplemental oxygen - Prednisone 40mg daily - Nebs - albuterol and DuoNeb and Pulmicort 5. Acute leukocytosis. Present on admission. Active -WBC 13.9 -Likely reactive in addition to chronic prednisone use -Follow with CBC 6. Secondary polycythemia, chronic. Present on admission. Active -Hgb 17.6 -Likely secondary polycythemia due to chronic hypoxia -Follow with CBC 7. Hypertension, chronic. Present on admission -Continue with home Lasix 80 mg by mouth twice a day 8. Nicotine dependence. Present on admission -Discussed smoking cessation. Patient states he will quit -Nicotine patch PRN 9. Obstructive sleep apnea, present on admission. Active. - Recommend home CPAP use, patient states that he will not use it. - Stop bang score 7 Acetaminophen for mild pain when necessary. Bowel regimen Senna and MiraLAX scheduled and PRN. Zofran when necessary for nausea and vomiting. SubQ heparin. SCDs in place. High-risk medications: Patient Status: Patient is admitted under inpatient status with expected length of stay greater than 2 midnights due to severity of presenting symptoms, risk of adverse event, and complexity of treatment plan. Exam Vital Signs (Last) Date Time Temp Pulse Resp B/P Pulse Ox O2 Delivery O2 Flow Rate FiO2 08/05/16 12:33 37.0 77 25 161/83 97 BiPAP 40 08/05/16 07:47 60 Exam General: Elderly gentleman lying in bed sleeping, in no acute distress with high flow nasal prongs at 70 FiO2, well-developed and barrel chested, well- nourished, appropriately interactive HEENT: Normocephalic, atraumatic. External ears without defect. Pupils equal, round, and reactive to light. Anicteric sclerae, moist conjunctivae, and no lid lag. BiPAP mask in place. Neck: Supple. No lymphadenopathy or thyromegaly. Cardiovascular: Regular rate and rhythm with no murmurs, rubs, or gallops appreciated Pulmonary: Diffuse coarse sounds bilaterally with wheezes. Patient exhibited tripoding with ambulation, was barrel chested and showed severe increase in accessory muscle use with respirations. Abdomen: Bowel tones present. Soft, nontender, nondistended. Extremities: Lower extremities with chronic changes and cyanosis. Mild pitting edema to the ankles bilaterally. Skin: Normal temperature, turgor, and texture; no rash, ulcers, or subcutaneous nodules appreciated. Neurological: Cranial nerves grossly intact. Psychiatric: Normal mood and affect. Alert and oriented to person, place, and time. Test 08/03/16 21:45 08/03/16 22:04 08/04/16 00:00 08/04/16 00:33 D-Dimer < 0.5mg/L (<0.50) Hemoglobin A1c 5.9% (4.8-5.6) Troponin T 0.010ug/L (0.0-0.011) Pro-B-Type Natriuretic Peptide 1616pg/mL (0-376) Hold Lucas Top Tube Received (Received) Urine Legionella pneumophilia Ag Negative (Negative) Urine Color Dark yellow (YELLOW) Urine Appearance Clear (CLEAR,HAZY) Urine pH 5.0 (5.0-8.0) Urine Specific [place] 1.030 (1.003-1.035) Urine Protein 100mg/dL (NEG,TRACE) Urine Glucose (UA) Negativemg/dL (NEGATIVE) Urine Ketones 15mg/dL (NEGATIVE) Urine Occult Blood Negative (NEGATIVE) Urine Nitrite Negative (NEGATIVE) Urine Bilirubin Negative (NEGATIVE) Urine Urobilinogen Normalmg/dL (NORMAL) Urine Leukocyte Esterase Negative (NEGATIVE) Urine RBC 0-2/hpf (0-2) Urine WBC 0-5/hpf (0-5) Urine Epithelial Cells Few/hpf (NONE-MOD) Urine Crystals None seen (NONE SEEN) Urine Bacteria Few/hpf (NONE-FEW) Urine Hyaline Casts >20/lpf (NONE) Urine Granular Casts None seen (NONE SEEN) Urine Waxy Casts None seen (NONE SEEN) Urine Red Blood Cell Casts None seen (NONE SEEN) Urine White Blood Cell Casts None seen (NONE SEEN) Urine Mucus None seen (None Seen) Urine Trichomonas None seen (NONE SEEN) Urine Yeast None (NONE SEEN) Urinalysis Comment None Urine Culture Reflexed Not indicated Test 08/04/16 11:20 08/05/16 02:32 Lactic Acid Level 1.4mmol/L (0.4-2.0) White Blood Count 12.1th/mm3 (3.8-10.1) Red Blood Count 4.64mil/mm3 (4.40-5.80) Hemoglobin 15.2g/dL (13.8-17.2) Hematocrit 47.2% (41.0-50.0) Mean Corpuscular Volume 101.7fL (81-100) Mean Corpuscular Hemoglobin 32.8pg (27.0-35.0) Mean Corpuscular Hemoglobin Concent 32.2% (32.0-37.0) Red Cell Distribution Width 13.0% (12.3-15.4) Platelet Count 150bil/L (150-400) Neutrophils (%) (Auto) 86.4% (40-74) Lymphocytes (%) (Auto) 3.9% (14-46) Monocytes (%) (Auto) 9.3% (4-12) Eosinophils (%) (Auto) 0% (0-5) Basophils (%) (Auto) 0.1% (0-3) Sodium Level 136mEq/L (134-144) Potassium Level 5.2mEq/L (3.5-5.2) Chloride Level 89mEq/L (97-108) Carbon Dioxide Level 35mmol/L (18-29) Blood Urea Nitrogen 35mg/dL (8-27) Creatinine 0.84mg/dL (0.76-1.27) Estimat Glomerular Filtration Rate 96mL/min (>59) Glucose Level 179mg/dL (60-99) Calcium Level 9.0mg/dL (8.5-10.1) Phosphorus Level 2.9mg/dL (2.5-4.9) Magnesium Level 2.2mg/dL (1.6-2.6) Total Bilirubin 0.2mg/dL (0.0-1.2) Aspartate Amino Transf (AST/SGOT) 19U/L (0-50) Alanine Aminotransferase (ALT/SGPT) 14U/L (0-44) Alkaline Phosphatase 102U/L (25-160) Total Protein 6.5g/dL (6.4-8.4) Albumin 4.0g/dL (3.4-5.0) Procalcitonin 0.16ng/mL (0.00-0.08) Discharge Medications Discharge Medications Albuterol/Ipratropium (Combivent Inhaler) 14.7 Gm Aero 14.7 GM INH QID (Reported ) Fluticasone/Salmeterol (Advair 250-50 Diskus) 60 Puff/Inh Disk 1 PUFF IH BID ( Reported) Polyethylene Glycol 3350 (Miralax) 17 Gm Powd.pack 17 GM PO DAILY Prescribed by: ISHMAEL GARVIN DO Potassium Chloride ER (Klor-Con 10) 10 Meq Tablet 10 MEQ PO BID (Reported) Prednisone (PredniSONE) 5 Mg Tab 5 MG PO DAILY (Reported) Prednisone (Deltasone) 20 Mg Tablet 40 MG PO DAILY Prescribed by: ISHMAEL GARVIN DO Torsemide (Torsemide) 20 Mg Tablet 40 MG PO DAILY Prescribed by: ISHMAEL GARVIN, DO Additional med instructions Prednisone 60 mg by mouth once a day for 5 days. Once finished with the 60 mg once a day for 5 days then you can resume your previous to 5 mg per day of prednisone. Start Torsemide 40 mg by mouth daily. Start taking MiraLAX once a day until you have bowel movements. Discontinue Lasix. Lasix is the same type of drug as torsemide however torsemide has a much better oral absorption and may be more effective as a diuretic for you. Not take Lasix and torsemide at the same time. In fact I will reevaluate stop taking Lasix, and replace it with torsemide. Followup Plan Follow-up plan Follow-up with her primary care physician within one week. At that time he will need to address her diuretics torsemide versus furosemide, and the utility of adding extra antihypertensive medication for high blood pressure. I recommend that you stop smoking immediately, since this can exacerbate her existing COPD and can potentially bring you back to the hospital. I highly recommend using a CPAP machine at night for obstructive sleep apnea. I highly recommend you follow up with a warp knitting machine operator to help manage your severe COPD and sleep apnea. Follow-up Provider: Varinder Jones MD Follow-up with PCP in: 2 weeks Provider: Isis Spears MD Follow-up in: 2 weeks Time spent Greater than 30 minutes was spent in preparation of discharge with greater than 50% of that time dedicated to patient counseling and coordination of care. . Attending Statement The patient was seen and examined together with Dr. Garvin on 08/05/2016 and I agree with the history, exam and plan as outlined in the note above. . copies to: Varinder Jones MD, COREY P DO Aug 06, 2016 15:28 Yoel Allen MD Aug 07, 2016 07:51
== END 2016-08-05 18:05 | disposition home or self-care (01) | DRG 871 ==
LOC: SED 21:34 → EDBD 21:34 → PCC 23:28
PROVIDERS: ADMIT Hospitalist; ATTEND Hospitalist
PROC: 5A09357 Assistance with Respiratory Ventilation, Less than 24 Consecutive Hours, Continuous Positive Airway Pressure (ICD-10-PCS; principal; 2016-08-03)
PROC: 4A033B1 Measurement of Arterial Pressure, Peripheral, Percutaneous Approach (ICD-10-PCS; 2016-08-03)
DX: A41.9 Sepsis, unspecified organism (principal); I50.33 Acute on chronic diastolic (congestive) heart failure; J96.22 Acute and chronic respiratory failure with hypercapnia; J44.1 Chronic obstructive pulmonary disease with (acute) exacerbation; D75.1 Secondary polycythemia; B34.2 Coronavirus infection, unspecified; I10 Essential (primary) hypertension; M19.91 Primary osteoarthritis, unspecified site; I25.10 Atherosclerotic heart disease of native coronary artery without angina pectoris; G47.33 Obstructive sleep apnea (adult) (pediatric); F17.210 Nicotine dependence, cigarettes, uncomplicated; Z66 Do not resuscitate; Z79.51 Long term (current) use of inhaled steroids; Z99.81 Dependence on supplemental oxygen